=== PATIENT | male | born 1955 | race Caucasian/White ===

== ENCOUNTER → 2018-02-11 | Outpatient (CLI) | payer BC ==
--- NOTE | 2018-02-11 09:25 | CT ---
EXAMINATION TYPE: CT abdomen pelvis w con DATE OF EXAM: 02/11/2018 COMPARISON: NONE HISTORY: 62-year-old male with constipation and RLQ pain TECHNIQUE: Contiguous axial scanning of the abdomen and pelvis following administration of 100 ml Iso román 300 IV contrast. Delayed images through the kidneys and coronal/sagittal reconstructions perform ed. CT DLP: 1000 mGycm Automated exposure control for dose reduction was used. FINDINGS: Heart normal size without pericardial effusion. Mild dependent atelectasis on the right. No pleural e ffusion. Tiny hiatal hernia. Ectatic lower descending thoracic aorta at 2.6 cm. A few scattered subcentimeter hypodense lesions especially in the left liver lobe are too small for a ccurate CT characterization, probably representing cysts. No biliary ductal dilatation. Portal venous system is patent. Gallbladder is collapsed. Adrenal glands, spleen, and pancreas appear within normal limits. There is mild right-sided caliectasis but with more marked distention of the renal pelvis and abrupt caliber change at the UPJ, refer to coronal image 53. No calculus is seen along the course of either ureter or within the kidneys. On the right, there are 2 adjacent lateral cysts measuring up to 3.4 cm and a mildly complicated cyst in the anterior lower pole measuring 2.8 cm. Smaller 1 cm cortical lesion lateral lower pole right k idney is indeterminate with possible soft tissue attenuation, axial image 41. Extrarenal pelvis on the left with some cortical based soft tissue density nodularity lateral mid stefan e measuring 1 cm which should be reassessed at follow-up. No dilated small bowel, free fluid, or free air. A few scattered borderline sized mesenteric lymph no michi measure up to 6 mm. Otherwise, no mesenteric or retroperitoneal lymphadenopathy seen. Normal appendix. Oral contrast progressed to the left side of the colon. Mild diverticular change maged und the junction of the descending and sigmoid colon. Scattered mild stool. No pericolonic change. Mild circumferential bladder wall thickening. Prostate gland is enlarged at 5.1 cm wide. Patulous lai ateral inguinal canals. Multiple pelvic phleboliths. No abnormal fluid collection in the pelvis or pe lvic lymphadenopathy. Bones: Mild degenerative changes of the hips. Bilateral L5 pars defects with grade 2 anterolisthesis at L5-S1 and associated degenerative disc disease. Grade 1 retrolisthesis at both L3-L4 and L4-L5 as well with hypertrophic facet arthropathy and bulging discs. IMPRESSION: 1. ABRUPT CALIBER CHANGE AT THE RIGHT UPJ WITH RIGHT-SIDED PELVICALIECTASIS. NO OBSTRUCTING CALCULUS OR MASS IS SEEN. A UPJ STRICTURE IS POSSIBLE. CONSIDER NUCLEAR MEDICINE MAG3 RENAL SCAN TO ASSESS FOR ANY SIGNIFICANT OBSTRUCTION. 2. AN INDETERMINATE 1 CM CORTICAL LESION AT THE LOWER POLE RIGHT KIDNEY. 6 MONTH FOLLOW-UP CT CAN HEL P EXCLUDE A SMALL EARLY SOLID MASS. 3. ADDITIONAL EXOPHYTIC SOFT TISSUE NODULARITY MEASURING 1 CM FROM THE LATERAL LEFT KIDNEY SHOULD ALS O BE REASSESSED AT THAT TIME. 4. PROSTATOMEGALY (5.1 CM WIDE). MILD CIRCUMFERENTIAL BLADDER WALL THICKENING COULD REPRESENT CYSTITI S OR CHRONIC BLADDER WALL HYPERTROPHY. 5. BILATERAL L5 PARS DEFECTS WITH GRADE 2 ANTEROLISTHESIS AT L5-S1 AND GRADE 1 RETROLISTHESES AT L3-L 4 AND L4-L5.
== END | disposition home or self-care (01) ==
LOC: RADCTMAIN 07:03
PROVIDERS: ATTEND Internal Medicine
DX: N40.0 Benign prostatic hyperplasia without lower urinary tract symptoms (principal); N32.89 Other specified disorders of bladder; N28.89 Other specified disorders of kidney and ureter
CPT/HCPCS: 74177; Q9967

== ENCOUNTER 2019-11-06 03:25 | Emergency (ER) | payer MEDICARE, BC ==
[2019-11-06 03:34] VITALS: RESP 18
--- NOTE | 2019-11-06 04:01 | ED ---
Chest Pain HPI - General Chief Complaint: Recheck/Abnormal Lab/Rx Stated Complaint: Trouble Sleeping,High Heart Rate Time Seen by Provider: 11/06/19 03:29 Source: patient, RN notes reviewed, old records reviewed Mode of arrival: ambulatory Limitations: no limitations - History of Present Illness MD Complaint: chest pain, other (anxiety) -: week(s) Onset: awoke with symptoms, other (occurs at night and during sleep) Pain Location: other (no pain) Pain Radiation: none Severity: moderate Severity scale (1-10): 4 Quality: other (palpitations) Consistency: intermittent, now resolved Improves With: nothing Worsens With: other (sleeping) Anginal Symptoms: dyspnea, sense of impending doom Other Symptoms: palpitations Treatments Prior to Arrival: none - Related Data Home Medications Medication Instructions Recorded Confirmed Tamsulosin [Flomax] 0.4 mg PO PC-LUNCH 02/17/18 02/17/18 Allergies Allergy/AdvReac Type Severity Reaction Status Date / Time No Known Allergies Allergy Verified 11/06/19 03:34 Review of Systems ROS Statement: Those systems with pertinent positive or pertinent negative responses have been documented in the HPI. ROS Other: All systems not noted in ROS Statement are negative. EKG Findings - EKG Comments: EKG Findings:: EKG shows sinus bradycardia rate of 47, RI 170, QRS 104, QTc 417 Past Medical History Past Medical History: No Reported History History of Any Multi-Drug Resistant Organisms: None Reported Past Surgical History: No Surgical Hx Reported Past Psychological History: No Psychological Hx Reported Smoking Status: Former smoker Past Alcohol Use History: Daily Past Drug Use History: Marijuana General Exam Limitations: no limitations General appearance: alert, in no apparent distress Head exam: Present: atraumatic, normocephalic, normal inspection Eye exam: Present: normal appearance, PERRL, EOMI. Absent: scleral icterus, conjunctival injection, periorbital swelling ENT exam: Present: normal exam, mucous membranes moist Neck exam: Present: normal inspection. Absent: tenderness, meningismus, lymphadenopathy Respiratory exam: Present: normal lung sounds bilaterally. Absent: respiratory distress, wheezes, rales, rhonchi, stridor Cardiovascular Exam: Present: normal rhythm, bradycardia, normal heart sounds. Absent: systolic murmur, diastolic murmur, rubs, gallop, clicks GI/Abdominal exam: Present: soft, normal bowel sounds. Absent: distended, tenderness, guarding, rebound, rigid Extremities exam: Present: normal inspection, full ROM, normal capillary refill. Absent: tenderness, pedal edema, joint swelling, calf tenderness Back exam: Present: normal inspection Neurological exam: Present: alert, oriented X3, CN II-XII intact Psychiatric exam: Present: normal affect, normal mood Skin exam: Present: warm, dry, intact, normal color. Absent: rash Course Vital Signs 11/06/19 11/06/19 11/06/19 03:30 03:34 04:34 Temperature 98.2 F Pulse Rate 52 L 45 L 43 L Respiratory 18 Rate Blood Pressure 164/78 O2 Sat by Pulse 99 98 96 Oximetry 11/06/19 11/06/19 05:34 06:30 Temperature 98.1 F Pulse Rate 46 L 50 L Respiratory 18 Rate Blood Pressure 130/91 O2 Sat by Pulse 98 98 Oximetry Disposition Clinical Impression: Palpitations, Anxiety, Bradycardia Disposition: HOME SELF-CARE Condition: Good Instructions (If sedation given, give patient instructions): Heart Palpitations (ED) Is patient prescribed a controlled substance at d/c from ED?: No Referrals: Aleks Benedict MD [Primary Care Provider] - 1-2 days
--- NOTE | 2019-11-06 04:21 | XR ---
EXAMINATION TYPE: XR chest 2V DATE OF EXAM: 11/06/2019 COMPARISON: 03/08/2009 HISTORY: Palpitations TECHNIQUE: FINDINGS: Heart and mediastinum are normal. Lungs are clear. Diaphragm is normal. Bony thorax appears normal. Pulmonary vascularity is normal. There are no hilar masses. IMPRESSION: No active cardiopulmonary disease. Normal heart. No change.
[2019-11-06 06:34] VITALS: BP 130/91; PULSE 50; TEMP 98.1
== END 2019-11-06 06:34 | disposition home or self-care (01) ==
LOC: EC 03:25
DX: F41.9 Anxiety disorder, unspecified (principal); R00.2 Palpitations; R00.1 Bradycardia, unspecified; Z87.891 Personal history of nicotine dependence
CPT/HCPCS: 71046; 93005; 99285

== ENCOUNTER 2020-07-04 13:21 | Observation (INO) | payer BC, MEDICARE ==
[2020-07-04] MEDS ORDERED: DIPH,PERTUS(ACELL)TETVAC-LF 0.5 ML VIAL IM ONE (13:46)
--- NOTE | 2020-07-04 14:15 | ED ---
General Adult HPI - General Chief complaint: Fall Stated complaint: fall, head injury Time Seen by Provider: 07/04/20 13:25 Source: patient, RN notes reviewed, old records reviewed Mode of arrival: wheelchair Limitations: no limitations - History of Present Illness Initial comments: This is a 64-year-old male who presents emergency Department who states he was walking down steps with some things in his hands he tripped and fell down the steps and hit his head. Patient denies loss of consciousness or being days. Patient denies any neck pain. Patient denies any numbness weakness. Patient does state he split the back of his head in the occipital region. Patient denies any nausea vomiting. Patient states he has no other injuries except for an abrasion on the back of his left wrist per patient states she has full motion of his wrist shoulders and elbows. Patient has no lower extremity pain. Patient denies back pain chest pain abdominal pain. Patient denies being on any blood thinners. Patient denies any chest pain difficulty breathing or shortness of breath or to the incident. Patient denies any palpitations prior to the incident. - Related Data Home Medications Medication Instructions Recorded Confirmed Tamsulosin [Flomax] 0.4 mg PO DAILY 02/17/18 07/04/20 Allergies Allergy/AdvReac Type Severity Reaction Status Date / Time No Known Allergies Allergy Verified 07/04/20 15:52 Review of Systems ROS Statement: Those systems with pertinent positive or pertinent negative responses have been documented in the HPI. ROS Other: All systems not noted in ROS Statement are negative. Past Medical History Past Medical History: No Reported History History of Any Multi-Drug Resistant Organisms: None Reported Past Surgical History: No Surgical Hx Reported Past Psychological History: No Psychological Hx Reported Smoking Status: Never smoker Past Alcohol Use History: Daily Past Drug Use History: Marijuana General Exam - General Exam Comments Initial Comments: GENERAL: Patient is well-developed and well-nourished. Patient is nontoxic and well- hydrated and is in mild distress. ENT: Neck is soft and supple. No significant lymphadenopathy is noted. Oropharynx is clear. Moist mucous membranes. Neck has full range of motion without eliciting any pain. EYES: The sclera were anicteric and conjunctiva were pink and moist. Extraocular movements were intact and pupils were equal round and reactive to light. Eyelids were unremarkable. PULMONARY: Unlabored respirations. Good breath sounds bilaterally. No audible rales rhon chi or wheezing was noted. CARDIOVASCULAR: There is a regular rate and rhythm without any murmurs gallops or rubs. ABDOMEN: Soft and nontender with normal bowel sounds. No palpable organomegaly was noted. There is no palpable pulsatile mass. SKIN: Patient has a laceration to the posterior aspect of his scalp in the occipital region. Patient's laceration measures about 4 cm. Patient has a superficial abrasion measuring about half a centimeter to the posterior aspect of his left wrist NEUROLOGIC: Patient is alert and oriented x3. Cranial nerves II through XII are grossly intact. Motor and sensory are also intact. Normal speech, volume and content. Symmetrical smile. MUSCULOSKELETAL: Normal extremities with adequate strength and full range of motion. No lower extremity swelling or edema. No calf tenderness. LYMPHATICS: No significant lymphadenopathy is noted PSYCHIATRIC: Normal psychiatric evaluation. Limitations: no limitations Course Vital Signs 07/04/20 07/04/20 07/04/20 13:22 15:27 18:10 Temperature 97.9 F Pulse Rate 96 51 L 43 L Respiratory 18 18 16 Rate Blood Pressure 129/81 145/88 129/76 O2 Sat by Pulse 98 99 95 Oximetry Medical Decision Making - Medical Decision Making Patient's EKG was done because there was noted by the nurse that his heart rate was in the 47-50 range patient's EKG shows sinus bradycardia 51 bpm [place] interval is 170 QRS is 90 QT interval 470 QTC is 433. Patient's EKG shows no ST segment elevation or depression. Patient states he has often been bradycardic. Patient was mildly nauseous I gave him some Zofran and he was doing much better after that. Patient's CT of the brain and C-spine showed no acute normalities. I stapled the patient's scalp laceration together to approximate the edges the wound and it came together nicely and he tolerated procedure well. I discharge the patient go home but after discharge he was feeling considerably more nauseous and couldn't stand up without the room moving and him feeling extremely nauseous and on balance. Patient multiple times since this he could not go home. I spoke with Dr. Kramer she agreed to admit the patient admitted the patient I consulted medicine and neurology. - Lab Data Lab Results 07/04/20 Range/Units 15:25 POC Glucose (mg/dL) 99 (75-99) mg/dL POC Glu Rn Hemodialysis Charge ID Fawad Rooney Disposition Clinical Impression: Fall, Scalp laceration, Head injury, Vertigo Disposition: ADMITTED IP TO THIS HOSP Condition: Good Additional Instructions: Staple should be removed in 7 days Referrals: Aleks Benedict MD [Primary Care Provider] - 1-2 days Time of Disposition: 15:59
--- NOTE | 2020-07-04 14:38 | CT ---
EXAMINATION TYPE: CT brain stew murillo DATE OF EXAM: 07/04/2020 COMPARISON: NONE HISTORY: Fall, head injury back of head with headache and neck pain CT DLP: 1405.3 mGycm. Automated Exposure Control for Dose Reduction was Utilized. TECHNIQUE: CT scan of the head and cervical spine are performed without contrast. FINDINGS: There is no acute intracranial hemorrhage, mass effect, or midline shift identified. The ventricles and sulci are within normal limits in size for patient's age. Doll-white matter differen tiation is maintained. The globes are intact and the visualized sinuses are clear. Small to moderate- sized acute right parietal occipital scalp hematoma axial image 35. The calvarium is intact. Cervical spine is visualized in its entirety from C1 through upper thoracic levels and demonstrates s traightened alignment without evidence of acute fracture or dislocation. Prevertebral soft tissue ap pears within normal limits. The C1-C2 articulation is within normal limits on the coronal images. V ertebral body heights are maintained. Mild disc space narrowing and anterior spurring C5-C6 level. Mo [id number] disc space narrowing and mild/moderate spurring C6-C7 level. Posterior disc herniati on effaces anterior thecal sac C5-C6 level. Posterior spur disc complex effacing the anterior thecal sac at C6-C7 level with subtle grade 1 retrolisthesis C6 on C7. Review of axial images shows multilev el vertebral facet degenerative changes greatest right C3-C4 and left C2-C3 levels causing bilateral neural foraminal narrowing. Mild biapical pleural/parenchymal scarring extending posteriorly. Thyroid gland is within normal limits. IMPRESSION: 1. There is no acute fracture or dislocation evident in the cervical spine. 2. No acute intracranial hemorrhage or midline shift is seen. Small to moderate-sized acute right par ieto-occipital scalp hematoma.
[2020-07-04] MEDS ORDERED: ONDANSETRON 4 MG/2 ML VIAL IM STA (15:13)
[2020-07-04 15:33] LABS: Glucose,Whole Blood 99 mg/dL (75-99)
[2020-07-04] MEDS ORDERED: ONDANSETRON 4 MG ODT STARTER PACK 2 TAB BTL PO STA (16:01)
[2020-07-04] MEDS ORDERED: DIAZEPAM 5 MG/ML 2 ML INJ IVP STA (17:27)
[2020-07-04] MEDS ORDERED: SODIUM CHLORIDE 0.9% 1,000 ML IV ONE (18:17)
[2020-07-04] MEDS ORDERED: MECLIZINE 12.5 MG TAB PO PRN (18:20)
[2020-07-04] MEDS: ONDANSETRON 4 MG/2 ML VIAL IVP PRN (22:25)
[2020-07-05] MEDS: ONDANSETRON 4 MG/2 ML VIAL IVP PRN ×2 (07:27→14:55)
--- NOTE | 2020-07-05 10:05 | P.CNNES ---
History of Present Illness Consult date: 07/05/20 Requesting physician: Curt Trotter Reason for Consult: head injury and vertigo History of Present Illness: This is a 64-year-old gentleman with history constipation that presented emergency department on 07/04/2020 after a fall and as a result hitting his head. 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 He didn't lose consciousness but had the back of his head. He stated that he is having the lightheadedness with head movement. He doesn't describe it as dizziness or the room is spinning or he spinning. He just stated that he feels lightheaded that with any head position or body position. He feels like his old bodies weak. He denies of any focal weakness or numbness. Denies of any visual disturbance, ringing of the ears or hearing loss. He denies any focal weakness that resulted in the fall he had contributed that he was going up and moving so fast and that he tripped and fell. He denies of any headaches. He feels like he is doesn't feel well in his own words. He feels he is constipated as well as nauseous. He does have some left lower back pain but denies any radiation or any bladder problems. Patient denies of any neck pain. Denies any weakness or numbness. He denies being on any blood thinners. Workup in the hospital consisted of: Initial vitals blood pressure of 129/81 with a heart rate of 96, respiratory of 18, temperature of 97.9 Fahrenheit oral and the pulse ox of 98% room air. CT of the head is reported as no acute intracranial hemorrhage or midline shift is seen. [id number] sized acute right parietal occipital scalp hematoma. CT of the cervical spine is reported as there is no acute fracture or dislocation evident in the cervical spine. And the body and it's reported as moderate to severe disc space narrowing and mild to moderate spurring at C6-C7. Posterior disc herniation the face anterior thecal sac over C4-C5 level. Posterior spur disc complex effacing the anterior thecal sac at the C6-C7 level with septal grade 1 retrolithiasis of the C6-C7. There is degenerative changes greatest over the right C3-C4 and the left C2-C3 causing bilateral neuroforaminal narrowing. Initial POC glucose is 99. As a result he had some alix on the back of the right occipital. Review of Systems Review of system: The 12 point system was reviewed and apparent positive and negative per HPI. Past Medical History Past Medical History: No Reported History Additional Past Medical History / Comment(s): Pt states he has an enlarged prostate. History of Any Multi-Drug Resistant Organisms: None Reported Past Surgical History: No Surgical Hx Reported Past Anesthesia/Blood Transfusion Reactions: No Reported Reaction Past Psychological History: No Psychological Hx Reported Smoking Status: Never smoker Past Alcohol Use History: Daily Past Drug Use History: Marijuana Medications and Allergies Home Medications Medication Instructions Recorded Confirmed Type Tamsulosin [Flomax] 0.4 mg PO DAILY 02/17/18 07/04/20 History Allergies Allergy/AdvReac Type Severity Reaction Status Date / Time No Known Allergies Allergy Verified 07/04/20 15:52 Physical Examination - Vital Signs Vital Signs: Vital Signs Temp Pulse Pulse Resp BP BP BP 07/05/20 07:23 57 L 20 134/78 07/05/20 01:42 98.2 F 52 L 14 120/73 07/04/20 20:22 65 18 135/93 07/04/20 20:16 97.3 F L 53 L 16 139/80 07/04/20 18:10 43 L 16 129/76 07/04/20 15:27 51 L 18 145/88 07/04/20 13:22 97.9 F 96 18 129/81 Pulse Ox 07/05/20 07:23 98 07/05/20 01:42 96 07/04/20 20:22 96 07/04/20 20:16 96 07/04/20 18:10 95 07/04/20 15:27 99 07/04/20 13:22 98 Intake and Output 07/04/20 07/05/20 07/05/20 22:59 06:59 14:59 Intake Total 600 Balance 600 Intake: Intake, IV Titration 600 Amount Sodium Chloride 0.9% 1, 600 000 ml @ 75 mls/hr IV . [id number] ONE Rx#:[id number] Other: # Voids 2 Weight 81.647 kg GENERAL: The patient is lying in bed and look fatigue. CHEST: The heart rate is regular rate rhythm. No murmurs to auscultation. LUNG: Clear to auscultation bilaterally no wheezing noted throughout. Not labored breathing. ABDOMEN/GI: Bowel sounds present in all 4 quadrants. No tenderness to palpation throughout. NEUROLOGICAL: Higher mental function: The patient is awake, alert, oriented to self, place and time. Patient is following commands. No aphasia and no neglect. Cranial nerves: The pupils are round, equal and reactive to light and accommodation. Visual mas are full to confrontation throughout. Extraocular movement is intact no nystagmus is noted. Facial sensation is normal to touch throughout. The facial strength is normal throughout. Hearing is normal bilaterally to hand rub. Tongue is midline and moved [id number] without any difficulty. No dysarthria is noted. Shoulder shrug is normal bilaterally. Motor: Gait was cautious and felt mildly light headed but denies dizziness. The strength is 5 over 5 throughout. Normal tone and bulk. Cerebellum: Normal finger to nose and heel to aguilar bilaterally. Sensation: Sensation is normal to touch throughout. Reflexes (right/left): patellar are 3+ bilaterally otherwise 2+ throughout. Plantars are downgoing bilaterally. Assessment and Plan Assessment: This is a 64-year-old gentleman that that presented to the emergency department on 07/04/2020 after a mechanical fall and hitting the back of the head. He feels lightheaded with position and feels generalized weakness as well as he feels constipated. Denies any focal weakness or numbness. 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 Patient was started on meclizine 12.5 mg 1 tablet 3 times a day when necessary by the ED team and i will change it to scheduled. He was given Valium 2.5 mg in the ED. I consulted the physical therapy and occupation therapy I ordered TSH. Regarding management of constipation will defer to the primary team. The plan was discussed with the patient's nurse. Thank you for the consultation. Stefan Byrd MD Neuro-Hospitalist Time with Patient: Greater than 30
[2020-07-05] MEDS: TAMSULOSIN 0.4 MG CAP.ER.24H PO SCH (10:15)
[2020-07-05 10:28] LABS: Basophils % (A) 0 %; Eosinophils % (A) 0 %; HCT 41.3 % (39.0-53.0); HGB 13.8 gm/dL (13.0-17.5); Lymphocytes # (A) 1.4 k/uL (1.0-4.8); Lymphocytes % (A) 13 %; MCH 31.4 pg (25.0-35.0); MCHC 33.5 g/dL (31.0-37.0); MCV 93.6 fL (80.0-100.0); Mean Platelet Volume 7.8; Monocytes # (A) 0.6 k/uL (0-1.0); Monocytes % (A) 5 %; Neutrophils # (A) 8.7 k/uL (1.3-7.7); Neutrophils % (A) 80 %; Platelet Count 237 k/uL (150-450); RBC 4.41 m/uL (4.30-5.90); RDW 11.9 % (11.5-15.5); WBC 10.9 k/uL (3.8-10.6)
[2020-07-05 10:39] LABS: African American GFR (CKD) >90 (>60 ml/min/1.73 sqM); Anion Gap 6 mmol/L; Blood Urea Nitrogen 10 mg/dL (9-20); Calcium 9.1 mg/dL (8.4-10.2); Carbon Dioxide 23 mmol/L (22-30); Chloride 110 mmol/L (98-107); Glucose 113 mg/dL (74-99); Non-African American GFR(CKD) >90 (>60 ml/min/1.73 sqM); Potassium 3.6 mmol/L (3.5-5.1); Sodium 139 mmol/L (137-145)
[2020-07-05] MEDS: METOCLOPRAMIDE 5 MG/ML 2 ML VIAL IVP PRN (10:53)
[2020-07-05] MEDS ORDERED: LORazepam 2 MG/ML INJ IV PRN ×3 (12:04)
[2020-07-05] MEDS ORDERED: THIAMINE 100 MG/ML 2 ML VIAL IM STA (12:04)
[2020-07-05] MEDS ORDERED: SODIUM CHLORIDE 0.9% 1,000 ML IV ONE (12:13)
--- NOTE | 2020-07-05 12:13 | P.GSHP ---
History of Present Illness H&P Date: 07/05/20 TRAUMA ADMIT: Status post fall HISTORY OF PRESENT ILLNESS: The patient is a 64-year-old male who was admitted yesterday after falling backwards onto 7-8 flights of stairs. He presented with laceration on the scalp. After repair of the scalp laceration by ER providers, patient reported troubles with balance including vertigo. As result, patient was admitted. Today, patient does admit to drinking at least 4 beers per day. He reports new complaints of bilateral lower abdominal pain. He reports pre- existing problems with abdominal pain. He's not had a previous colonoscopy. He reports low appetite. As a result of vertigo, patient is being seen by neurology. He denies any active headaches. He denies any active neck pain. He denies any chest pain. PAST MEDICAL HISTORY: See list and reviewed PAST SURGICAL HISTORY: See list and reviewed MEDICATIONS See list and reviewed ALLERGIES: See list and reviewed SOCIAL HISTORY: See list and reviewed. Reports drinking at least 4 beers per day. "I am not alcoholic." FAMILY HISTORY: See list and reviewed REVIEW OF ORGAN SYSTEMS: CONSTITUTIONAL: Denies any fever or chills. HEENT: Denies any trouble with vision, hearing or nosebleeds. No difficulty swallowing. Wears glasses. LYMPHATIC: The patient denies any lumps and bumps around the neck. ENDOCRINE: Denies any thyroid disorders. Denies any blood sugar glucose into lerance. RESPIRATORY: Denies pneumonia. Denies shortness of breath. CARDIOVASCULAR: Denies chest pain. Denies palpitations. GASTROINTESTINAL: Reports pre-existing chronic lower abdominal pain including constipation. No previous colonoscopies. GENITOURINARY: Denies any blood in urine. Has pre-existing lower urinary tract symptoms or prostate disorder MUSCULOSKELETAL: Has back pain, stiffness, joint arthritis. NEUROLOGIC: Denies any numbness or tingling along the distal extremities. No s eizure disorders or headaches. PSYCHIATRIC: Denies depression or suidical ideation. HEMATOLOGIC: Denies any abnormal bleeding or bruising. BREASTS: Denies any breast lumps, pain or nipple discharge. PHYSICAL EXAM: VITAL SIGNS: Stable GENERAL: Well-developed male in no acute distress. Pleasant. HEENT: No sclerae icterus. Extraocular movements grossly intact. Moist buccal mucosa. Posterior scalp laceration. NECK: No thyromegaly. Nontender. CHEST: Nonlabored respirations. Equal bilateral excursions. CARDIOVASCULAR: Distal pulses 2+. ABDOMEN: Mild distention. No peritonitis. Umbilical hernia noted. No gross ecchymoses along bilateral flanks. MUSCULOSKELETAL: No clubbing, cyanosis, or edema. NEURO: No focal or lateralizing signs. Cranial nerves II to XII intact. SKIN: Perfused. Good skin turgor. PSYCH: Alert and oriented to person place and time. LABS: Reviewed. White blood cell count on presentation 10.9. STUDIES: CT of thin head and C-spine independently reviewed by me demonstrating features without intracranial hemorrhage. No acute cervical fractures ident ified ASSESSMENT: 1. Status post fall on 6-7 stairs 2. Acute scalp laceration status post repair 3. New vertigo and imbalance 4. Pre-existing alcohol abuse disorder 5. Pre-existing chronic abdominal pain now worse PLAN: 1. He reports pre-existing history of chronic alcohol use. Recommend EtOH serum levels. 2. Recommend urine drug screen 3. Recommend CT of the abdomen and pelvis with IV contrast for abdominal pain and mechanism of injury. Oral contrast avoided due to nausea 4. With history of vertical or neurological changes, neurology following 5. Medicine consultation for delirium tremens protocol and history of alcohol abuse 6. Inpatient hospitalization due to status post fall, neurological changes, abdominal pain Past Medical History Past Medical History: No Reported History Additional Past Medical History / Comment(s): Pt states he has an enlarged prostate. History of Any Multi-Drug Resistant Organisms: None Reported Past Surgical History: No Surgical Hx Reported Past Anesthesia/Blood Transfusion Reactions: No Reported Reaction Past Psychological History: No Psychological Hx Reported Smoking Status: Never smoker Past Alcohol Use History: Daily Past Drug Use History: Marijuana Medications and Allergies Home Medications Medication Instructions Recorded Confirmed Type Tamsulosin [Flomax] 0.4 mg PO DAILY 02/17/18 07/04/20 History Allergies Allergy/AdvReac Type Severity Reaction Status Date / Time No Known Allergies Allergy Verified 07/04/20 15:52 Surgical - Exam Vital Signs Temp Pulse Resp BP Pulse Ox 97.9 F 96 18 129/81 98 07/04/20 13:22 07/04/20 13:22 07/04/20 13:22 07/04/20 13:22 07/04/20 13:22 Results - Labs 07/05/20 10:05 07/05/20 10:05 Abnormal Lab Results - Last 24 Hours (Table) 07/05/20 07/05/20 Range/Units 10:05 10:05 WBC 10.9 H (3.8-10.6) k/uL Neutrophils # 8.7 H (1.3-7.7) k/uL Chloride 110 H (98-107) mmol/L Glucose 113 H (74-99) mg/dL Diabetes panel 07/05/20 Range/Units 10:05 Sodium 139 (137-145) mmol/L Potassium 3.6 (3.5-5.1) mmol/L Chloride 110 H (98-107) mmol/L Carbon Dioxide 23 (22-30) mmol/L BUN 10 (9-20) mg/dL Creatinine 0.86 (0.66-1.25) mg/dL Glucose 113 H (74-99) mg/dL Calcium 9.1 (8.4-10.2) mg/dL Thyroid panel 07/05/20 Range/Units 10:05 TSH 0.977 (0.465-4.680) mIU/L Calcium panel 07/05/20 Range/Units 10:05 Calcium 9.1 (8.4-10.2) mg/dL Pituitary panel 07/05/20 Range/Units 10:05 Sodium 139 (137-145) mmol/L Potassium 3.6 (3.5-5.1) mmol/L Chloride 110 H (98-107) mmol/L Carbon Dioxide 23 (22-30) mmol/L BUN 10 (9-20) mg/dL Creatinine 0.86 (0.66-1.25) mg/dL Glucose 113 H (74-99) mg/dL Calcium 9.1 (8.4-10.2) mg/dL TSH 0.977 (0.465-4.680) mIU/L Adrenal panel 07/05/20 Range/Units 10:05 Sodium 139 (137-145) mmol/L Potassium 3.6 (3.5-5.1) mmol/L Chloride 110 H (98-107) mmol/L Carbon Dioxide 23 (22-30) mmol/L BUN 10 (9-20) mg/dL Creatinine 0.86 (0.66-1.25) mg/dL Glucose 113 H (74-99) mg/dL Calcium 9.1 (8.4-10.2) mg/dL Assessment and Plan (1) Fall down stairs Current Visit: Yes Status: Acute Code(s): W10.8XXA - FALL (ON) (FROM) OTHER STAIRS AND STEPS, INITIAL ENCOUNTER SNOMED Code(s): 404459201 (2) Alcohol abuse Current Visit: Yes Status: Acute Code(s): F10.10 - ALCOHOL ABUSE, [facility] OMPLICATED SNOMED Code(s): 39504765 (3) Lower abdominal pain Current Visit: Yes Status: Acute Code(s): R10.30 - LOWER ABDOMINAL PAIN, UNSPECIFIED SNOMED Code(s): 79180133 (4) Lower urinary tract obstruction Current Visit: Yes Status: Acute Code(s): N13.9 - OBSTRUCTIVE AND REFLUX UROPATHY, UNSPECIFIED SNOMED Code(s): 63976475 (5) Head injury Current Visit: Yes Status: Acute Code(s): S09.90XA - UNSPECIFIED INJURY OF HEAD, INITIAL ENCOUNTER SNOMED Code(s): 85930985 (6) Scalp laceration Current Visit: Yes Status: Acute Code(s): S01.01XA - LACERATION WITHOUT FOREIGN BODY OF SCALP, INITIAL ENCOUNTER SNOMED Code(s): 988330975 (7) Vertigo Current Visit: Yes Status: Acute Code(s): R42 - DIZZINESS AND GIDDINESS SNOMED Code(s): 178978457
--- NOTE | 2020-07-05 13:47 | MR ---
EXAMINATION TYPE: MR brain wo con DATE OF EXAM: 07/05/2020 COMPARISON: 07/04/2020 HISTORY: Dizzy after fall hitting head, 6 alix in back of head. CONTRAST: Performed utilizing 0 mL intravenous Gadavist gadolinium contrast. TECHNIQUE: Multiplanar, multiecho imaging on a 3.0 Marcelina magnet is performed through the brain. Stud y is performed within 24 hours of arrival to the hospital. The craniovertebral junction is normal. The pituitary is normal. Diffusion-weighted imaging is performed. No abnormal hyperintensity is present to suggest an acute i ntracranial infarct or acute ischemic change. Minimal periventricular white matter deep white matter changes are present. This is within normal hay its for the patient age. Findings are nonspecific but could be related to microvascular ischemic wiseman ge. Ventricles and sulci are appropriate for the patient age. IMPRESSIONS: 1. No acute intracranial process. 2. Minimal white matter changes, not of proportion patient age. Chronic white matter ischemic change most likely within the differential.
[2020-07-05 14:02] LABS: Appearance,Urine Clear (Clear); Bilirubin,Urine Negative (Negative); Blood,Urine Negative (Negative); Color,Urine Light Yellow; Glucose,Urine (UA) Negative (Negative); Ketones,Urine 2+ (Negative); Leukocyte Esterase,Urine Negative (Negative); Nitrite,Urine Negative (Negative); PH, Urine 6.5 (5.0-8.0); Protein,Urine Negative (Negative); Urobilinogen,Urine <2.0 mg/dL (<2.0)
--- NOTE | 2020-07-05 14:10 | CT ---
EXAMINATION TYPE: CT abdomen pelvis w con DATE OF EXAM: 07/05/2020 COMPARISON: 02/11/2015 HISTORY: 64-year-old male with abdominal pain TECHNIQUE: Contiguous axial scanning of the abdomen and pelvis following administration of 100 ml Iso román 300 IV contrast. Delayed images through the kidneys and coronal/sagittal reconstructions perform ed. CT DLP: 1345 mGycm Automated exposure control for dose reduction was used. FINDINGS: Heart normal size without pericardial effusion. Strandy atelectasis or scarring in the right lower beatris ng. Underlying emphysematous change. No pleural effusion. Small hiatal hernia. Some focal fat along the anterior falciform ligament. No biliary ductal dilatation. Portal venous sys tem is patent. Gallbladder, adrenal glands, spleen, pancreas show no gross body. Tiny 8 mm cortical cyst lateral left kidney is unchanged from 2018. Multiple cysts within the right kidney measuring up to 4.0 cm, increased from 3.5 cm on 02/11/2018. An extra renal pelvis is present on the right. A intermediate attenuating 1 cm lesion lateral lower stefan e right kidney is unchanged from 2018 compatible with a benign etiology, possible complicated cyst. No dilated small bowel, free fluid, or free air. There is mild alondra mesentery in the mid and left side of the abdomen. Mesenteric lymph nodes here ar e prominent but not enlarged measuring up to 6 mm. Tiny fatty pneumothorax or hernia. Mild stool burden. Redundant sigmoid colon. No pericolonic inflammatory change. Bladder urine distended. Prostate gland measures 5.1 cm wide. There is some patchy heterogeneous enha ncement within especially on the left. Multiple pelvic phleboliths. No abnormal fluid collection the pelvis or pelvic lymphadenopathy. Patulous right inguinal canal. Bones: Mild degenerative change of both hips. Degenerative change right SI joint. Bilateral L5 pars d efects with grade 2 anterolisthesis at L5-S1. IMPRESSION: 1. MILD ALONDRA MESENTERY MID AND LEFT SIDE OF THE ABDOMEN. NONSPECIFIC FINDINGS WHICH MAY REFLECT A FL LD MESENTERIC PANNICULITIS. 2. COPD WITH EMPHYSEMA IN THE VISUALIZED LOWER LUNGS. SMALL HIATAL HERNIA. BENIGN CYSTS MEASURING UP TO 4.0 CM IN THE RIGHT KIDNEY, SOME OF WHICH ARE SLIGHTLY LARGER FROM 2018. 3. PROSTATOMEGALY (5.1 CM WIDE). THERE IS SOME PATCHY HETEROGENEITY OF THE GLAND. CORRELATE WITH PSA VALUES TO EXCLUDE SMALL UNDERLYING FOCUS OF PROSTATE CANCER. 4. BILATERAL L5 PARS DEFECTS REDEMONSTRATED WITH GRADE 2 ANTEROLISTHESIS AT L5-S1.
[2020-07-05] MEDS: MULTIVITAMINS, THERA 1 EACH TAB PO SCH (14:55)
[2020-07-05] MEDS: MECLIZINE 12.5 MG TAB PO SCH ×2 (14:56→23:13)
[2020-07-05] MEDS: PIPERACILLIN-TAZOBACTAM 3.375 GM in SODIUM CHLORIDE 0.9% 100 ML IVPB SCH ×2 (15:25→23:12)
[2020-07-05] MEDS: THIAMINE 100 MG TAB PO SCH (16:53)
--- NOTE | 2020-07-05 21:25 | P.CONS ---
History of Present Illness - Reason for Consult Consult date: 07/05/20 Medical management. - Chief Complaint Status post fall. - History of Present Illness Patient is a 64-year-old male with a known history of daily marijuana use presents to ER status post fall and hitting his head. Patient was working on the wall and suddenly lost his balance and fell back and did not have enough space to balance himself. Patient rolled down the stairs and hit his head on the back. Denied any loss of consciousness or dizziness before the fall. No chest pain. No heart racing or fast. Patient felt lightheaded after hitting his head. Otherwise denies any recent illnesses. No visual disturbance or hearing loss. No focal weakness. Denies any numbness or tingling sensation. No nausea vomiting. Patient does have some tenderness over the left side of the abdomen. CT cervical spine and head showed no acute fracture or dislocation. No intracranial hemorrhage or midline shift. Small to moderate sized acute right parieto-occipital scalp hematoma. EKG showed normal sinus rhythm with sinus bradycardia. Laboratory test showed WBC 10.9, hemoglobin 13.8 and platelets 237 Sodium 139 potassium 3.6 chloride 110 BUN 10 and creatinine 0.86 TSH 0.977, UA negative for infection Serum alcohol is less than 10 Patient states that he does drink 5-6 beers on daily basis. Especially after dinner. Review of Systems Constitutional: Patient denies any fever or chills . No generalized weakness or weight loss. Abdomen: Patient denied nausea vomiting and diarrhea and abdominal pain. Cardiovascular: Patient denies any chest pain or short of breath no palpitations. Respiratory: patient denied any cough or sputum production. No shortness of breath Neurologic: Patient denied any numbness or tingling headache. Musculoskeletal: Patient denies any complaints of joint swelling or deformity. Skin: Negative Psychiatric: Negative Endocrine: No heat or cold intolerance. No recent weight gain. Genitourinary: No dysuria or hematuria. All other 14 point ROS negative except the above Past Medical History Past Medical History: No Reported History Additional Past Medical History / Comment(s): Pt states he has an enlarged prostate. History of Any Multi-Drug Resistant Organisms: None Reported Past Surgical History: No Surgical Hx Reported Past Anesthesia/Blood Transfusion Reactions: No Reported Reaction Past Psychological History: No Psychological Hx Reported Smoking Status: Never smoker Past Alcohol Use History: Daily Past Drug Use History: Marijuana Medications and Allergies Home Medications Medication Instructions Recorded Confirmed Type Tamsulosin [Flomax] 0.4 mg PO DAILY 02/17/18 07/04/20 History Allergies Allergy/AdvReac Type Severity Reaction Status Date / Time No Known Allergies Allergy Verified 07/04/20 15:52 Physical Exam Vitals: Vital Signs Temp Pulse Pulse Resp BP BP BP 07/05/20 14:00 97.8 F 55 L 18 149/83 07/05/20 08:00 20 07/05/20 07:23 57 L 20 134/78 07/05/20 01:42 98.2 F 52 L 14 120/73 07/04/20 20:22 65 18 135/93 07/04/20 20:16 97.3 F L 53 L 16 139/80 07/04/20 18:10 43 L 16 129/76 Pulse Ox 07/05/20 14:00 99 07/05/20 08:00 07/05/20 07:23 98 07/05/20 01:42 96 07/04/20 20:22 96 07/04/20 20:16 96 07/04/20 18:10 95 Intake and Output 07/05/20 07/05/20 07/05/20 06:59 14:59 22:59 Intake Total 167 135 4707 Output Total 250 Balance 646 805 4533 Intake: IV 1600 Sodium Chloride 0.9% 1, 600 000 ml @ 75 mls/hr IV . [id number] ONE Rx#:[id number] Sodium Chloride 0.9% 1, 1000 000 ml @ 999 mls/hr IV . Q1H1M ONE Rx#:[id number] Intake, IV Titration 600 Amount Sodium Chloride 0.9% 1, 600 000 ml @ 75 mls/hr IV . [id number] ONE Rx#:[id number] Oral 200 Output: Urine 250 Other: Voiding Method Toilet # Voids 2 4 # Bowel Movements 1 PHYSICAL EXAMINATION: Patient is lying in the bed comfortably, no acute distress, awake alert and oriented.. HEENT: Normocephalic. Neck is supple. Pupils reactive. Nostrils clear. Oral cavity is moist. Ears reveal no drainage. occipital scalp laceration Neck reveals no JVD, carotid bruits, or thyromegaly. CHEST EXAMINATION: Trachea is central. Symmetrical expansion. Lung mas clear to auscultation and percussion. CARDIAC: Normal S1, S2 with no gallops. No murmurs ABDOMEN: Soft. Bowel sounds normal.Mild tenderness over the left side of the abdomen. No guarding or rigidity No organomegaly. No abdominal bruits. Extremities: reveal no edema. No clubbing or cyanosis Neurologically awake, alert, oriented x3 with well-coordinated movements. No focal deficits noted Skin: No rash or skin lesions. Psychiatric: Coperative. Nonsuicidal Musculoskeletal: No joint swelling or deformity. Normal range of motion. Results CBC & Chem 7: 07/05/20 10:05 07/05/20 10:05 Labs: Abnormal Lab Results - Last 24 Hours (Table) 07/05/20 07/05/20 07/05/20 Range/Units 10:05 10:05 13:50 WBC 10.9 H (3.8-10.6) k/uL Neutrophils # 8.7 H (1.3-7.7) k/uL Chloride 110 H (98-107) mmol/L Glucose 113 H (74-99) mg/dL Urine Ketones 2+ H (Negative) Assessment and Plan Assessment: Status post mechanical fall and hit his head on the back. Scalp hematoma Traumatic brain injury due to fall Left-sided abdominal pain Daily alcohol use with 5-6 beers after dinner. Constipation DVT prophylaxis with early ambulation Plan: Patient independent gentle IV hydration and pain management. CT of the abdomen pelvis was ordered. Continue stool softeners and follow-up. MRI of the brain was ordered. Neurology is on board. Further recommendations based on clinical course. Encourage incentive spirometry and ambulation. Monitor alcohol withdrawal symptoms. Continue thiamine. Thank you for your consult. Time with Patient: Greater than 30
[2020-07-06] MEDS: ONDANSETRON 4 MG/2 ML VIAL IVP PRN (04:01)
[2020-07-06 06:18] LABS: Basophils # (A) 0.1 k/uL (0-0.2); Basophils % (A) 1 %; Eosinophils # (A) 0.1 k/uL (0-0.7); Eosinophils % (A) 1 %; HCT 39.9 % (39.0-53.0); HGB 13.5 gm/dL (13.0-17.5); Lymphocytes # (A) 2.3 k/uL (1.0-4.8); Lymphocytes % (A) 25 %; MCH 31.8 pg (25.0-35.0); MCV 93.7 fL (80.0-100.0); Mean Platelet Volume 7.6; Monocytes # (A) 0.6 k/uL (0-1.0); Monocytes % (A) 7 %; Neutrophils # (A) 5.7 k/uL (1.3-7.7); Neutrophils % (A) 64 %; Platelet Count 207 k/uL (150-450); RBC 4.26 m/uL (4.30-5.90)
[2020-07-06] MEDS: PIPERACILLIN-TAZOBACTAM 3.375 GM in SODIUM CHLORIDE 0.9% 100 ML IVPB SCH (07:31)
[2020-07-06] MEDS: THIAMINE 100 MG TAB PO SCH (07:34)
[2020-07-06] MEDS: METOCLOPRAMIDE 5 MG/ML 2 ML VIAL IVP PRN (07:45)
[2020-07-06 10:34] LABS: African American GFR (CKD) 91.1 (60.0-200.0); Albumin 3.9 g/dL (3.80-4.90); Albumin/Globulin Ratio 2.29 (1.60-3.17); Anion Gap 6.9 mmol/L (4.00-12.00); Calcium 8.9 mg/dL (8.7-10.3); Carbon Dioxide 25.1 mmol/L (21.6-31.8); Globulin 1.7 g/dL (1.6-3.3); Non-African American GFR(CKD) 78.6 (60.0-200.0); Potassium 3.7 mmol/L (3.5-5.5); Total Bilirubin 0.8 mg/dL (0.2-1.2); Total Protein 5.6 g/dL (6.2-8.2)
[2020-07-06 10:35] VITALS: BP 121/71; PULSE 50; RESP 18; TEMP 98.7
[2020-07-06] MEDS: MECLIZINE 12.5 MG TAB PO SCH (10:40)
[2020-07-06] MEDS: TAMSULOSIN 0.4 MG CAP.ER.24H PO SCH (10:40)
[2020-07-06] MEDS: MULTIVITAMINS, THERA 1 EACH TAB PO SCH (10:40)
--- NOTE | 2020-07-06 10:45 | P.DS ---
Providers Date of admission: 07/04/20 18:17 Expected date of discharge: 07/06/20 Attending physician: Chantale Hudson Consults: 07/04/20 18:17 Consult Physician Urgent Consulting Provider: Stefan Byrd Consult Reason/Comments: Head injury, vertigo Do you want consulting provider notified?: Yes Consult Physician Urgent Consulting Provider: Edgardo Sinclair Consult Reason/Comments: Vertigo Do you want consulting provider notified?: Yes Primary care physician: Marichuy Phelps Charbal - Discharge Diagnosis(es) (1) Fall down stairs Status: Acute (2) Alcohol abuse Status: Acute (3) Lower abdominal pain Status: Acute (4) Lower urinary tract obstruction Status: Acute (5) Head injury Status: Acute (6) Scalp laceration Status: Acute (7) Vertigo Status: Acute Hospital Course: COURSE: The patient is a 64-year-old male who was admitted after falling backwards onto 7-8 flights of stairs. He presented with laceration on the scalp. After repair of the scalp laceration by ER providers, patient reported troubles with balance including vertigo. As result, patient was admitted. Neurology consultation was obtained due to vertigo. Additionally patient confirmed chronic alcohol abuse. Medical consultation was obtained. Additional diagnostic studies for abdominal pain was unremarkable for acute injuries. Prior to discharge, patient was passing flatus. Denied any headaches. Neurological symptoms had improved. Patient was deemed stable for discharge from consultants. PHYSICAL EXAM: VITAL SIGNS: Stable GENERAL: Well-developed male in no acute distress. Pleasant. HEENT: No sclerae icterus. Extraocular movements grossly intact. Moist buccal mucosa. Posterior scalp laceration with alix NECK: No thyromegaly. Nontender. CHEST: Nonlabored respirations. Equal bilateral excursions. CARDIOVASCULAR: Distal pulses 2+. ABDOMEN: Mild distention. No peritonitis. Umbilical hernia noted. No gross ecchymoses along bilateral flanks. MUSCULOSKELETAL: No clubbing, cyanosis, or edema. NEURO: No focal or lateralizing signs. Cranial nerves II to XII intact. SKIN: Perfused. Good skin turgor. PSYCH: Alert and oriented to person place and time. LABS: Reviewed. White blood cell count normal STUDIES: MRI of the brain was negative for acute infarct or ischemia or hemorrhage ASSESSMENT: 1. Status post fall on 6-7 stairs 2. Acute scalp laceration status post repair 3. New vertigo and imbalance 4. Pre-existing alcohol abuse disorder 5. Pre-existing chronic abdominal pain now worse PLAN: 1. Patient stable for discharge. 2. May follow-up with primary care provider for removal of alix Patient Condition at Discharge: Good Plan - Discharge Summary Discharge Rx Participant: Yes New Discharge Prescriptions: No Action Tamsulosin [Flomax] 0.4 mg PO DAILY Discharge Medication List Tamsulosin [Flomax] 0.4 mg PO DAILY 02/17/18 [History] Follow up Appointment(s)/Referral(s): Aleks Benedict MD [Primary Care Provider] - 07/09/20 1:00 pm Patient Instructions/Handouts: Laceration (GEN), Head Injury (GEN), Staple Care (GEN) Activity/Diet/Wound Care/Special Instructions: Staple should be removed in 7 days
== END 2020-07-06 12:55 ==
LOC: EC 13:21 → 6NMEDSUR 18:17
PROVIDERS: ADMIT Surgery Plastic and Reconstructive Surgery; ATTEND Surgery Plastic and Reconstructive Surgery
DX: S01.01XA Laceration without foreign body of scalp, initial encounter (principal); W10.9XXA Fall (on) (from) unspecified stairs and steps, initial encounter; R42 Dizziness and giddiness; R11.0 Nausea; K59.00 Constipation, unspecified; R53.1 Weakness; G89.29 Other chronic pain; R10.30 Lower abdominal pain, unspecified; N40.1 Benign prostatic hyperplasia with lower urinary tract symptoms; N13.8 Other obstructive and reflux uropathy; R26.89 Other abnormalities of gait and mobility; F10.10 Alcohol abuse, uncomplicated; M54.5 Low back pain; M50.221 Other cervical disc displacement at C4-C5 level; M46.02 Spinal enthesopathy, cervical region; M43.12 Spondylolisthesis, cervical region; M50.31 Other cervical disc degeneration, high cervical region; Z79.899 Other long term (current) drug therapy
CPT/HCPCS: 96376 ×2; 96361 ×2; 96365; 96366 ×2; 96372 ×2; 96375 ×2; 12002; 90471; 99285; 36415; 93005; 97162; 97165; 80053; 80048; 84443; 85025 ×2; 81003; 72125; 70450; 74177; 70551; 90715; G0378 ×3; G0480; J2543 ×2; J2060; J2765 ×2; J3411; J3360; J2405 ×3; S0119; Q9967; 80320

== ENCOUNTER 2022-12-29 12:16 | Emergency (ER) | payer MEDICARE ==
[2022-12-29 12:20] VITALS: TEMP 97.9
[2022-12-29] MEDS ORDERED: LIDOCAINE 1% INJ 10MG/ML (20 ML MDV) SQ ONE (12:31)
[2022-12-29] MEDS ORDERED: DIPH,PERTUS(ACELL)TETVAC-LF 0.5 ML VIAL IM ONE (12:31)
--- NOTE | 2022-12-29 13:07 | ED ---
Wound/Laceration HPI - General Chief Complaint: Wound/Laceration Stated Complaint: rt hand finger laceration Time Seen by Provider: 12/29/22 12:21 Source: patient, RN notes reviewed Mode of arrival: ambulatory Limitations: no limitations - History of Present Illness Initial Comments: This is a 67-year-old male who presents to the emergency department for a laceration. Patient was moving wood, when he accidentally caused a laceration to his left second finger. Pain and bleeding are controlled at this time. He is not on blood thinners. Unsure when his last tetanus vaccine was. Denies any fevers, chills, sore throat, cough, dyspnea, chest pain, palpitations, abdominal pain, nausea, vomiting, diarrhea, back pain, or headaches. - Related Data Home Medications Medication Instructions Recorded Confirmed Tamsulosin [Flomax] 0.4 mg PO DAILY 02/17/18 07/04/20 Allergies Allergy/AdvReac Type Severity Reaction Status Date / Time No Known Allergies Allergy Verified 12/29/22 12:20 Review of Systems ROS Statement: Those systems with pertinent positive or pertinent negative responses have been documented in the HPI. ROS Other: All systems not noted in ROS Statement are negative. Past Medical History Past Medical History: No Reported History Additional Past Medical History / Comment(s): Pt states he has an enlarged pr ostate. History of Any Multi-Drug Resistant Organisms: None Reported Past Surgical History: No Surgical Hx Reported Past Anesthesia/Blood Transfusion Reactions: No Reported Reaction Past Psychological History: No Psychological Hx Reported Smoking Status: Never smoker Past Alcohol Use History: Daily Past Drug Use History: Marijuana General Exam Limitations: no limitations General appearance: alert, in no apparent distress Head exam: Present: atraumatic, normocephalic, normal inspection Respiratory exam: Present: normal lung sounds bilaterally. Absent: respiratory distress, wheezes, rales, rhonchi, stridor Cardiovascular Exam: Present: regular rate, normal rhythm, normal heart sounds. Absent: systolic murmur, diastolic murmur, rubs, gallop, clicks Neurological exam: Present: alert, oriented X3, CN II-XII intact Psychiatric exam: Present: normal affect, normal mood Skin exam: Present: other (4 cm laceration between the DIP and PIP joints on the volar aspect of the second finger on the left hand.) Course Vital Signs 12/29/22 12/29/22 12:18 13:17 Temperature 97.9 F Pulse Rate 62 76 Respiratory 18 16 Rate Blood Pressure 164/85 126/85 O2 Sat by Pulse 98 97 Oximetry Procedures - Laceration Laceration #1 Consent Obtained: verbal consent Indication: laceration Site: other (Left second finger) Size (cm): 4 Description: linear Depth: simple, single layer Anesthetic Used: lidocaine 1% Anesthesia Technique: local infiltration Amount (mls): 4 Pre-repair: wound explored, irrigated extensively Type of Sutures: nylon Size of Sutures: 5-0 Number of Sutures: 7 Technique: simple, interrupted Medical Decision Making - Medical Decision Making This is a 67-year-old male who presents to the emergency department for a laceration. Was pt. sent in by a medical professional or institution? @ -No Did you speak to anyone other than the patient for history? @ -No Did you review nursing and triage notes? @ -Yes, and I agree, it is accurate with regards to the patient's symptoms. Were old charts reviewed? @ -No Differential Diagnosis? @ -Not applicable EKG interpreted by me (3pts min.)? @ -Not obtained X-rays interpreted by me (1pt min.)? @ -Not obtained CT interpreted by me (1pt min.)? @ -Not obtained U/S interpreted by me (1pt. min.)? @ -Not obtained What testing was considered but not performed? (CT, X-rays, U/S, labs)? Why? @ -None What meds were considered but not given? Why? @ -None Did you discuss the management of the patient with other professionals? @ -No Did you reconcile home meds? @ -No Was smoking cessation discussed for >3mins.? @ -No Was critical care preformed (if so, how long)? @ -No Were there social determinants of health that impacted care today? How? (Homelessness, low income, unemployed, alcoholism, drug addiction, transportation, low edu. Level, literacy, decrease access to med. care, senior care, rehab)? @ -No Was there de-escalation of care discussed even if they declined? (Discuss DNR or withdrawal of care, Hospice)? @ -No What co-morbidities impacted this encounter? (DM, HTN, Smoking, COPD, CAD, Cancer, CVA, Hep., AIDS, mental health diagnosis, sleep apnea, morbid obesity)? @ -None Was patient admitted / discharged? @ -Discharged. Laceration was repaired with sutures. Tetanus vaccine was updated. He is instructed to return in 7-10 days for suture removal. Otherwise advised ibuprofen and Tylenol as needed for pain relief. Undiagnosed new problem with uncertain prognosis? @ -None Drug Therapy requiring intensive monitoring for toxicity (Heparin, Nitro, Insulin, Cardizem)? @ -None Were any procedures done? @ -Laceration repair with sutures Diagnosis/symptom? @ -Laceration Acute, or Chronic, or Acute on Chronic? @ -Acute Uncomplicated (without systemic symptoms) or Complicated (systemic symptoms)? @ -Uncomplicated Side effects of treatment? @ -None Exacerbation, Progression, or Severe Exacerbation] @ -Not applicable Poses a threat to life or bodily function? @ -No Return precautions reviewed in depth, the patient is instructed to return to the emergency department with any new, worsening, or concerning symptoms. Patient verbalized understanding. This case was discussed in detail with the attending ED physician, Dr. Shah. Presentation, findings, and treatment plan discussed in detail as well. Disposition Clinical Impression: Laceration Disposition: HOME SELF-CARE Instructions (If sedation given, give patient instructions): Care For Your Stitches (ED) Additional Instructions: Return to the emergency department with any new, worsening, or concerning symptoms and in 7-10 days for removal of the stitches. Alternate with ibuprofen and tylenol as needed for pain relief. Is patient prescribed a controlled substance at d/c from ED?: No Referrals: Aleks Benedict MD [Primary Care Provider] - 1-2 days
[2022-12-29 13:18] VITALS: BP 126/85; PULSE 76; RESP 16
== END 2022-12-29 13:17 | disposition home or self-care (01) ==
LOC: EC 12:16
DX: S61.210A Laceration without foreign body of right index finger without damage to nail, initial encounter (principal); F12.90 Cannabis use, unspecified, uncomplicated; Z23 Encounter for immunization; W26.8XXA Contact with other sharp object(s), not elsewhere classified, initial encounter
CPT/HCPCS: 90715; 12002; 99282; 90471; J2001